=== PATIENT | male | born 1940 | race Caucasian/White ===

== ENCOUNTER 2019-10-28 17:29 | Inpatient (IN) ==
--- OUTSIDE RECORDS SUMMARY | 2019-10-28 17:31 | External Medical Summary | Continuity of Care Document ---
:1940 Author Name Cyndi Red Address Unavailable Unavailable , Care Team Providers Name Role Phone NonMNPG M.D. Unavailable [email or web address] PCP, UNKNOWN Unavailable Unavailable Problems Abnormal electrocardiogram (794.31) (R94.31) Dyslipidemia (272.4) (E78.5) Pre-operative cardiovascular examination (V72.81) (Z01.810) Hypertension (401.9) (I10) Osteoarthritis (715.90) Allergies and Adverse Reactions Neomycin-Bacitracin Zn-Polymyx OINT (Allergy) Medications Medications not documented Procedures Procedures not documented Immunizations Immunizations not documented Social History - Smoking Status Never smoked tobacco Plan of Treatment Planned Observations Planned Goals not documented Results No Known Results Results not documented
[2019-10-28 18:08] LABS: Hematocrit (blood only) 40.2 % (42-52); Hemoglobin 13.9 g/dL (14.0-18.0); Mean Corpuscular Hemoglobin 34.3 pg (25-34); Mean Corpuscular Hgb Conc 34.6 g/dL (32-36); Mean Corpuscular Volume 99.3 fL (80-100); RDW Coefficient of Variation 14.7 % (11.5-14.5); RDW Standard Deviation 53.3 fL (36.4-46.3); Red Blood Count 4.05 M/uL (4.7-6.1); White Blood Count 3.67 K/uL (4.8-10.8)
[2019-10-28 18:09] LABS: INR 1.1 (0.9-1.1); Prothrombin Time 11.1 Seconds (9.0-12.0)
[2019-10-28 18:21] LABS: Platelet Count 70 K/uL (130-400)
[2019-10-28 18:22] LABS: Basophils # (auto) 0.01 K/uL (0-0.2); Basophils % (auto) 0.3 %; Eosinophils # (auto) 0.15 K/uL (0-0.5); Eosinophils % (auto) 4.1 %; Immature Granulocytes # (auto) 0.01 K/uL (0.00-0.02); Immature Granulocytes % (auto) 0.3 %; Lymphocytes # (auto) 1.69 K/uL (1.2-3.4); Monocytes # (auto) 0.36 K/uL (0.11-0.59); Monocytes % (auto) 9.8 %; Neutrophils # (auto) 1.45 K/uL (1.4-6.5); Neutrophils % (auto) 39.5 %; Platelet Estimate Decreased (Normal)
[2019-10-28 18:26] LABS: Albumin Level 3.2 gm/dl (3.4-5.0); BUN Creatinine Ratio 15.3 (10-20); Blood Urea Nitrogen 17 mg/dl (7-18); Calcium 8.7 mg/dl (8.5-10.1); Carbon Dioxide 27 mmol/L (21-32); Chloride 111 mmol/L (98-107); Est GFR (African American) 74.7; Est GFR (Non-African American) 64.4; Glucose 81 mg/dl (70-99); Sodium 142 mmol/L (136-145)
[2019-10-28 18:29] LABS: Alanine Aminotransferase 42 U/L (12-78); Alkaline Phosphatase 63 U/L (45-117); Bilirubin,Total 0.6 mg/dl (0.2-1); Globulin 3.3 gm/dl (2.5-4.0); Thyroid Stimulating Hormone 0.849 uIu/ml (0.300-4.500); Total Protein 6.5 gm/dl (6.4-8.2); Troponin I < 0.015 ng/ml (0-0.045)
--- NOTE | 2019-10-28 18:49 | XRay Report ---
SINGLE VIEW CHEST CLINICAL HISTORY: Generalized weakness. FINDINGS: An AP, portable, upright chest radiograph is compared to study dated 04/25/2011. The examina tion is degraded by portable technique, apical lordotic positioning, and patient rotation. Heart is e nlarged. The pulmonary vasculature is noncongested. The lungs and pleural spaces are clear. No pneumo thorax is seen. The skeletal structures are osteopenic. The bony thorax is grossly intact. IMPRESSION: Cardiomegaly with no active disease in the chest. ACT 112: Negative or not required by law. Electronically signed by: Scotty Aponte M.D. 10/28/2019 6:48 PM
[2019-10-28 19:06] LABS: Potassium 4.3 mmol/L (3.5-5.1)
[2019-10-28 19:11] LABS: Magnesium 1.8 mg/dl (1.8-2.4)
[2019-10-28 19:35] LABS: Lyme Ab IgG w/WB Rflx Negative (Negative); Lyme Ab IgM w/WB Rflx Negative (Negative)
[2019-10-28] MEDS ORDERED: HydrALAZINE HCL 20 MG/ML VIAL IV PRN (23:01)
[2019-10-28] MEDS ORDERED: ACETAMINOPHEN 325 MG TAB PO PRN (23:01)
[2019-10-28] MEDS ORDERED: FLUTICASONE PROPIONATE NA SPR 16 GM BTL PRN (23:01)
[2019-10-28] MEDS ORDERED: ALUMINUM/MAGNESIUM SUSP 30 ML UDC PO PRN (23:01)
[2019-10-28] MEDS ORDERED: NITROGLYCERIN SL 0.4 MG/TAB TAB SL PRN (23:01)
[2019-10-28] MEDS ORDERED: POLYETHYLENE (MIRALAX) 17 GM PACK PO PRN (23:01)
--- NOTE | 2019-10-28 23:38 | History & Physical Report ---
Date of Service October 28, 2019 Assessment & Plan (1) Dizziness: Ja Davis is a 79 y/o male with past medical hx of Multiple Myeloma, HTN, BPH, HLD who presented to [facility] ED via EMS for dizziness. - Bijeminy on ECG most likely cause of symptomatic dizziness most likely from poor perfusion to brain. In ED exam room, appeared to be NSR on monitor. - Denies prior cardiac history other than HTN. Notes follows with [facility] in [place] and had a stress test about 5 years ago, no prior cardiac caths. - Unsure if his BP is untreated, elevated BP readings here, only on Lisinopril 20mg BID. - Will hold Flomax overnight since worsening dizziness on exertion and would like to prevent syncope from alpha-1 antagonist. - C/w ASA 81 mg daily - C/w home simvastatin 40mg daily - Cardiology consult placed for evaluation/recs - Cardiac monitoring - Initial trop negative, will continue to trend - No significant electrolyte abnormalities - Attempt to get records from [facility] in [place]. FENGI: NPO since maybe need for pacemaker, continue with PPI, pantoprazole 40mg PO since home NF Dispo: Full admit, 2 midnight rule applies DVT ppx: SCDs Code: Full Code (2) Bigeminy: New ECG findings in ED (3) HTN (hypertension): Elevated BP here in ED 180s/90s with a systolic reading in room of 200. c/w Lisinopril 20mg PO BID Hydralazine 10mg IV PRN >180/>110 (4) Multiple myeloma: Notes diagnosis about 5 years ago, follows with [facility] [place]. Currently on Revlimid 10mg PO, takes daily for one week, then does not take for one week. Currently is taking this week. Did not bring medication with him. Discussed to have spouse bring medication tomorrow. Appears to be well controlled, patient is a vague historian. c/w Acyclovir 400mg PO daily for ppx C/w home gabapentin 300mg PO TID (5) Anxiety and depression: c/w sertraline 50mg PO daily (6) GERD (gastroesophageal reflux disease): pantoprazole 40mg PO since home NF Admission and Anticipated Discharge Date Admission Date: October 28, 2019 History of Present Illness Chief Complaint: Dizziness Primary Care Provider: NO PCP Ja Davis is a 79 y/o male with past medical hx of Multiple Myeloma, HTN, BPH, HLD who presented to [facility] ED via EMS for dizziness. He notes lightheadedne ss/dizziness for about one week. He notes it has been intermittent and is worse with exertion and made better by rest "not doing much." He denies chest pain, shortness of breath, nausea, vomiting, syncope, palpitations. He denies feeling like the room is spinning. He notes he had similar dizziness many years ago that was treated as sinusitis that resolved. He notes he called EMS as today dizziness "would not go away." He notes he follows with his medical care in [place]. He states EMS recommended transfer here to [facility] as more appropriate possible cardiac interventions could be performed here that may be limited at [place]. [place] was they were referring to Bijeminy appearance on his ECG which was what was seen in ED. He notes he follows with a [facility] in [place] for his HTN, denies CAD. He notes he has had echocardiogram, stress testing with last about 5 years ago. He denies any prior hx of cardiac catherization. He notes he is being treated for Multiple Myeloma with the cancer center in [place]. He is on Revlimid 10mg PO daily, he notes he takes medication for one week (current week), then takes one week off. He notes his MM is being well treated with diagnosis about 5 years ago. Allergies Allergy/AdvReac Type Severity Reaction Status Date / Time neomycin Allergy Unknown ? Verified 10/28/19 19:00 Home Medications Home Medications Medication Instructions Recorded Confirmed Type acyclovir 400 mg PO DAILY 10/28/19 10/28/19 History albuterol sulfate [Ventolin HFA] 2 puff INHALATION Q4 PRN 10/28/19 10/28/19 History aspirin [Aspir-81] 81 mg PO DAILY 10/28/19 10/28/19 History calcium carbonate [Calcium 600] 600 mg PO BID 10/28/19 10/28/19 History coenzyme Q10 [CoQ-10] 100 mg PO DAILY 10/28/19 10/28/19 History esomeprazole magnesium [Nexium] 20 mg PO DAILY 10/28/19 10/28/19 History fluticasone propionate [Flonase 2 spray INTRANASAL DAILY PRN 10/28/19 10/28/19 History Allergy Relief] gabapentin [Neurontin] 300 mg PO TID 10/28/19 10/28/19 History hydrocodone-acetaminophen [[place]] 1 tab PO Q4 PRN 10/28/19 10/28/19 History lenalidomide [Revlimid] 10 mg PO UD 10/28/19 10/28/19 History lisinopril [Zestril] 20 mg PO BID 10/28/19 10/28/19 History loperamide [Imodium A-D] 2 mg PO Q6H PRN 10/28/19 10/28/19 History loratadine 10 mg PO DAILY 10/28/19 10/28/19 History multivitamin 1 tab PO DAILY 10/28/19 10/28/19 History potassium chloride [Klor-Con M20] 20 meq PO BID 10/28/19 10/28/19 History potassium chloride [Klor-Con M20] 40 meq PO .QSUPPER 10/28/19 10/28/19 History sertraline [Zoloft] 50 mg PO DAILY 10/28/19 10/28/19 History simvastatin [Zocor] 40 mg PO DAILY 10/28/19 10/28/19 History sod phos di, mono-K phos mono 1,250 tab PO DAILY 10/28/19 10/28/19 History [Phospha 250 Neutral] terazosin 5 mg PO BID 10/28/19 10/28/19 History Past Med/Surg History Social History Smoking Status: Former smoker Smoking End Date: 1964; Second Hand Exposure: No; Do You Dip or Chew Tobacco: No; Hx Alcohol Use: No Hx Substance Use: No Preferred Language: Occitan Communication Ability: Effective [place] Required: No Beliefs That Will Affect Care: None Current Living Situation: Spouse Other Information That Helps Us Care for You: No Feels Safe at Home: Yes Safety Concerns: Feels Safe At This Time Review of Systems Review of Systems: All systems reviewed & are unremarkable except as noted in HPI & below Constitutional: no fever and no chills Eyes: no diplopia and no spots in vision Ear, Nose, Mouth, Throat: no epistaxis and no sore throat Respiratory: no cough and no dyspnea Cardiovascular: no chest pain and no syncope Gastrointestinal: no abdominal pain, no nausea and no vomiting Genitourinary: no dysuria and no urinary frequency Musculoskeletal: no back pain, no neck pain and no joint pain Integumentary: no rash and no lesions Neurologic: no localized weakness, no numbness and no syncope Physical Exam Constitutional: WD/WN, vitals as above + obese Eyes: PERRL, conjunctivae normal, anicteric sclerae ENMT: external ear and nose normal, oropharynx normal Neck: normal visual inspection and trachea midline Respiratory: normal respiratory effort, lungs clear to auscultation Cardiovascular: Rate/Rhythm: regular rate and regular rhythm Gastrointestinal (Abdomen): Inspection/Auscultation: normal bowel sounds; abdomen not distended Percussion/Palpation: abdomen soft; abdomen nontender, no guarding and abdomen not rigid Musculoskeletal: Head/Neck/Chest: normocephalic and head atraumatic Skin: no rashes, warm and dry Neurologic: moves all extremities and awake Psychiatric: Orientation: alert and oriented x 3 Eye Contact: good eye contact Affect: + anxious affect and + tearful affect Results & Data Results & Data ([facility]) Vital Signs (Past 12 Hours) Vital Signs Temp Pulse Resp BP Pulse Ox 10/28/19 22:30 48 L 12 175/97 H 96 10/28/19 21:30 47 L 12 161/90 H 96 10/28/19 21:00 47 L 16 170/85 H 95 10/28/19 20:31 47 L 12 161/92 H 95 10/28/19 20:04 52 L 16 174/92 H 96 10/28/19 20:00 52 L 13 147/92 H 95 10/28/19 19:31 58 L 15 188/90 H 97 10/28/19 19:00 52 L 14 170/91 H 96 10/28/19 18:31 56 L 15 143/77 H 96 10/28/19 18:17 54 L 15 172/96 H 96 10/28/19 17:32 37.1 C 64 20 148/77 H 95 Laboratory Results Laboratory Results - last 24 hr 10/28/19 10/28/19 10/28/19 17:50 17:50 17:50 WBC 3.67 L RBC 4.05 L Hgb 13.9 L Hct 40.2 L MCV 99.3 MCH 34.3 H MCHC 34.6 RDW Std Deviation 53.3 H RDW Coeff of Manav 14.7 H Plt Count 70 L MPV 12.0 H Immature Gran % (Auto) 0.3 Neut % (Auto) 39.5 Lymph % (Auto) 46.0 [place] % (Auto) 9.8 Eos % (Auto) 4.1 Baso % (Auto) 0.3 Neut # (Auto) 1.45 Lymph # (Auto) 1.69 [place] # (Auto) 0.36 Eos # (Auto) 0.15 Baso # (Auto) 0.01 Immature Gran # (Auto) 0.01 Platelet Estimate Decreased L PT 11.1 INR 1.1 Sodium 142 Potassium Chloride 111 H Carbon Dioxide 27 Anion Gap 5.0 BUN 17 Creatinine 1.10 Est Cr Clr Drug Dosing Not Reportable Est GFR ( Amer) 74.7 Est GFR (Non-Af Amer) 64.4 BUN/Creatinine Ratio 15.3 Glucose 81 Calcium 8.7 Magnesium Total Bilirubin 0.6 AST ALT 42 Alkaline Phosphatase 63 Troponin I < 0.015 Total Protein 6.5 Albumin 3.2 L Globulin 3.3 Albumin/Globulin Ratio 1.0 TSH 0.849 Lyme Disease IgG Ab Lyme Disease IgM Ab Blood Type Antibody Screen 10/28/19 10/28/19 10/28/19 17:50 18:24 18:36 WBC RBC Hgb Hct MCV MCH MCHC RDW Std Deviation RDW Coeff of Manav Plt Count MPV Immature Gran % (Auto) Neut % (Auto) Lymph % (Auto) [place] % (Auto) Eos % (Auto) Baso % (Auto) Neut # (Auto) Lymph # (Auto) [place] # (Auto) Eos # (Auto) Baso # (Auto) Immature Gran # (Auto) Platelet Estimate PT INR Sodium Potassium 4.3 Chloride Carbon Dioxide Anion Gap BUN Creatinine Est Cr Clr Drug Dosing Est GFR ( Amer) Est GFR (Non-Af Amer) BUN/Creatinine Ratio Glucose Calcium Magnesium 1.8 Total Bilirubin AST 21 ALT Alkaline Phosphatase Troponin I Total Protein Albumin Globulin Albumin/Globulin Ratio TSH Lyme Disease IgG Ab Negative Lyme Disease IgM Ab Negative Blood Type O Positive Antibody Screen NEGATIVE Code Status & VTE Plan Code Status Full Code VTE Prophylaxis Plan VTE Prophylaxis will be ordered: Yes Supervising Physician Co-Signing Physician Notes Attending addendum: I have physically seen this patient, have supervised the medical residents activities, and agree with the H&P unless as otherwise noted. Assessment and Plan: Symptomatic bradycardia/bigeminy/hypertension- The patient will be admitted to telemetry for serial cardiac enzymes, serial EKG's, cardiac rhythm monitoring and a 2-D echocardiogram with Dopplers. Manifesting as dizziness. Continue aspirin 81 mg daily, lisinopril 20 mg p.o. twice daily. Hydralazine 10 mg IV every 4 hours PRN systolic blood pressure greater than 180. Consult cardiology. Multiple myeloma- Continue usual medications acyclovir and gabapentin. Anxiety with depression- Continue sertraline 50 mg daily. GERD- Continue pantoprazole 40 mg daily Remainder of orders and notations as noted. Resident Activity Tracking Resident Involvement: Resident Care Provided Care Provided: [facility]
--- NOTE | 2019-10-29 00:59 | Emergency Department Note ---
Impression & Plan Symptomatic bradycardia ED Provider Note INFORMANT: [Patient] ED PROVIDER(S): Garland Aguila MD CHIEF COMPLAINT: Chief complaint lightheadedness PLAN: Disposition: Admitted Condition: [Good] MEDICAL DECISION MAKING: Patient presented to emergency department complaining of lightheadedness and not feeling well. He was noted to have a heart rate in the 30s per EMS his initial report. I did not have a rhythm strip or twelve-lead confirming this. The patient was mildly bradycardic in the ER initially. The patient had an unremarkable ECG. His chemistry panel was unremarkable. Lyme testing and troponin were negative. He does have a pancytopenia on CBC. The patient did have some prior low platelet measurements previously. On reassessment the patient stated he was feeling mildly lightheaded and his heart rate was in the low 40s. This did abruptly change and go back up into the high 50s, near 60 and the patient was feeling better. Because of this I suspect he may be dealing with a symptomatic bradycardia. He had no ischemic findings on his EKG in the emergency department. I discussed further management in the hospital. The patient was in agreement. [facility] Gray Mant[facility]. The patient was evaluated in the ER by the team and admitted. Triage Nursing notes reviewed and agree them. [Additional history obtained from] EMS Vital Signs: reviewed and remarkable for [no significant abnormalities] Differential diagnosis: Infection, dehydration, metabolic abnormality, hypo/hyperglycemia, electrolyte disturbance, anemia, hypoxia, cardiac sources, intracerebral event, toxicologic, neurologic, as well as other pathologies. Diagnostics interpreted by me: ECG: Rate: 69 Rhythm: Sinus rhythm with PVCs [place]:Normal QRS:Normal ST segements:No elevation or depression Other:No PACs or PVCs. Inferior Q waves Cardiac Monitoring: Cardiac monitoring ordered by me: The patient was placed on continuous cardiac monitoring and observed. It revealed a sinus rhythm that fluctuated with occasional moderate bradycardia and periods of the heart rate dipping to the low 40s. PVCs were noted. They were fairly frequent. Occasional bigeminy. Imaging studies: Chest x-ray. Findings: A chest x-ray was performed and revealed no pneumothorax, effusion, infiltrate, pulmonary edema, free air under the diaphragm, or wide mediastinum. Cardiomegaly noted. Impression: No acute disea se. Consultation(s): [facility] service HPI: The patient is a 79 year old male who presents to the Emergency Room with complaints of lightheadedness. This started intermittently over the last several days and is worsening. The patient also notes the following associated symptoms, feelings of near syncope and weakness. The patient has found no relieving factors. Current pain is rated as 0/10. EMS noted the patient had a heart rate that dipped down into the 30s when he was symptomatic. Pt denies LOC, headache, fevers, chills, diaphoresis, visual changes, neck pain, chest pain, breathing difficulties, nausea, vomiting, abdominal pain, back pain, melena, hematochezia, urinary symptoms, numbness, weakness, lymphadenopathy, rash, or other complaints. ROS: See above HPI for pertinent positives & negatives. A total of [10] systems reviewed and were otherwise negative. PAST MEDICAL HISTORY:[See Below] GERD, neuropathy, hypertension PAST SURGICAL HISTORY:[See Below] FAMILY HISTORY:[See Below] SOCIAL HISTORY:[See Below] HOME MEDICATIONS:[See Below] ALLERGIES:[See Below] VITALS:[See Below] PHYSICAL EXAMINATION: GENERAL: Awake, alert, well-appearing, in no distress HENT: Normocephalic, atraumatic. Oropharynx unremarkable. EYES: Normal conjunctiva. Sclera non-icteric. NECK: Inspection normal. Non-tender. Supple. No nuchal rigidity. FROM. No masses. RESPIRATORY: Clear to auscultation. No wheezes. No rales. Normal respiratory effort. CARDIAC: Borderline bradycardic rate. Normal rhythm. No murmurs. No rubs. Extremities warm and well perfused. Pulses equal. No JVD. GI: Soft, non-distended. No tenderness to palpation. No rebound or guarding. No masses. RECTAL: Deferred. MUSCULOSKELETAL: Atraumatic. Chest examination reveals no tenderness. The back is symmetrical on inspection without obvious abnormality. There is no CVA tenderness to palpation. No joint edema. LOWER EXTREMITIES: Calves are equal size bilaterally and non-tender. Trace edema. Chronic venous discoloration. NEURO: Normal sensorium. No sensory or motor deficits noted. SKIN: No rash or jaundice noted. ED COURSE: [Critical Care:] [None] Garland Aguila MD Past Med/Surg History Social History Smoking Status: Former smoker Smoking End Date: 1964; Second Hand Exposure: No; Do You Dip or Chew Tobacco: No; Hx Alcohol Use: No Hx Substance Use: No Preferred Language: Occitan Communication Ability: Effective Mandrel Press Hand Required: No Beliefs That Will Affect Care: None Current Living Situation: Spouse Other Information That Helps Us Care for You: No Feels Safe at Home: Yes Safety Concerns: Feels Safe At This Time Allergies Allergies Allergy/AdvReac Type Severity Reaction Status Date / Time neomycin Allergy Unknown ? Verified 10/28/19 19:00 Home Meds Home Medications Medication Instructions Recorded Confirmed acyclovir 400 mg PO DAILY 10/28/19 10/28/19 albuterol sulfate [Ventolin HFA] 2 puff INHALATION Q4 PRN 10/28/19 10/28/19 aspirin [Aspir-81] 81 mg PO DAILY 10/28/19 10/28/19 calcium carbonate [Calcium 600] 600 mg PO BID 10/28/19 10/28/19 coenzyme Q10 [CoQ-10] 100 mg PO DAILY 10/28/19 10/28/19 esomeprazole magnesium [Nexium] 20 mg PO DAILY 10/28/19 10/28/19 fluticasone propionate [Flonase 2 spray INTRANASAL DAILY PRN 10/28/19 10/28/19 Allergy Relief] gabapentin [Neurontin] 300 mg PO TID 10/28/19 10/28/19 hydrocodone-acetaminophen [[place]] 1 tab PO Q4 PRN 10/28/19 10/28/19 lenalidomide [Revlimid] 10 mg PO UD 10/28/19 10/28/19 lisinopril [Zestril] 20 mg PO BID 10/28/19 10/28/19 loperamide [Imodium A-D] 2 mg PO Q6H PRN 10/28/19 10/28/19 loratadine 10 mg PO DAILY 10/28/19 10/28/19 multivitamin 1 tab PO DAILY 10/28/19 10/28/19 potassium chloride [Klor-Con M20] 20 meq PO BID 10/28/19 10/28/19 potassium chloride [Klor-Con M20] 40 meq PO .QSUPPER 10/28/19 10/28/19 sertraline [Zoloft] 50 mg PO DAILY 10/28/19 10/28/19 simvastatin [Zocor] 40 mg PO DAILY 10/28/19 10/28/19 sod phos di, mono-K phos mono 1,250 tab PO DAILY 10/28/19 10/28/19 [Phospha 250 Neutral] terazosin 5 mg PO BID 10/28/19 10/28/19 Results & Data (ED) Vital Signs Vital Signs - 24 hr 10/28/19 17:32 10/28/19 18:17 10/28/19 18:31 Temperature 37.1 C Temperature Source Oral Pulse Rate 64 54 L 56 L Respiratory Rate 20 15 15 Respiratory Effort / Characteristics Non-Labored Spontaneous Respiratory Depth Normal Blood Pressure 148/77 H 172/96 H 143/77 H Blood Pressure Mean 100 104 84 Blood Pressure Position Sitting Pulse Oximetry 95 96 96 Oxygen Delivery Method Room Air Sepsis Recent Fever Within 48 Hours No Sepsis New/Unexplained Change in Mental Status N/A Sepsis Action Taken by Nursing No Action Required 10/28/19 19:00 10/28/19 19:31 10/28/19 20:00 Temperature Temperature Source Pulse Rate 52 L 58 L 52 L Respiratory Rate 14 15 13 Respiratory Effort / Characteristics Respiratory Depth Blood Pressure 170/91 H 188/90 H 147/92 H Blood Pressure Mean 129 102 103 Blood Pressure Position Pulse Oximetry 96 97 95 Oxygen Delivery Method Sepsis Recent Fever Within 48 Hours Sepsis New/Unexplained Change in Mental Status Sepsis Action Taken by Nursing 10/28/19 20:04 10/28/19 20:31 10/28/19 21:00 Temperature Temperature Source Pulse Rate 52 L 47 L 47 L Respiratory Rate 16 12 16 Respiratory Effort / Characteristics Respiratory Depth Blood Pressure 174/92 H 161/92 H 170/85 H Blood Pressure Mean 107 111 108 Blood Pressure Position Pulse Oximetry 96 95 95 Oxygen Delivery Method Sepsis Recent Fever Within 48 Hours Sepsis New/Unexplained Change in Mental Status Sepsis Action Taken by Nursing 10/28/19 21:30 10/28/19 22:30 Temperature Temperature Source Pulse Rate 47 L 48 L Respiratory Rate 12 12 Respiratory Effort / Characteristics Respiratory Depth Blood Pressure 161/90 H 175/97 H Blood Pressure Mean 121 114 Blood Pressure Position Pulse Oximetry 96 96 Oxygen Delivery Method Sepsis Recent Fever Within 48 Hours Sepsis New/Unexplained Change in Mental Status Sepsis Action Taken by Nursing Laboratory Data Result diagrams: 10/28/19 17:50 10/28/19 18:36 Lab Results 10/28/19 10/28/19 10/28/19 Range/Units 17:50 17:50 17:50 WBC 3.67 L (4.8-10.8) K/uL RBC 4.05 L (4.7-6.1) M/uL Hgb 13.9 L (14.0-18.0) g/dL Hct 40.2 L (42-52) % MCV 99.3 (80-100) fL MCH 34.3 H (25-34) pg MCHC 34.6 (32-36) g/dL RDW Std Deviation 53.3 H (36.4-46.3) fL RDW Coeff of Manav 14.7 H (11.5-14.5) % Plt Count 70 L (130-400) K/uL MPV 12.0 H (7.4-10.4) fL Immature Gran % (Auto) 0.3 % Neut % (Auto) 39.5 % Lymph % (Auto) 46.0 % [place] % (Auto) 9.8 % Eos % (Auto) 4.1 % Baso % (Auto) 0.3 % Neut # (Auto) 1.45 (1.4-6.5) K/uL Lymph # (Auto) 1.69 (1.2-3.4) K/uL [place] # (Auto) 0.36 (0.11-0.59) K/uL Eos # (Auto) 0.15 (0-0.5) K/uL Baso # (Auto) 0.01 (0-0.2) K/uL Immature Gran # (Auto) 0.01 (0.00-0.02) K/uL Platelet Estimate Decreased L (Normal) PT 11.1 (9.0-12.0) Seconds INR 1.1 (0.9-1.1) Sodium 142 (136-145) mmol/L Potassium (3.5-5.1) mmol/L Chloride 111 H (98-107) mmol/L Carbon Dioxide 27 (21-32) mmol/L Anion Gap 5.0 (3-11) BUN 17 (7-18) mg/dl Creatinine 1.10 (0.6-1.4) mg/dl Est Cr Clr Drug Dosing Not Reportable Est GFR ( Amer) 74.7 Est GFR (Non-Af Amer) 64.4 BUN/Creatinine Ratio 15.3 (10-20) Glucose 81 (70-99) mg/dl Calcium 8.7 (8.5-10.1) mg/dl Magnesium (1.8-2.4) mg/dl Total Bilirubin 0.6 (0.2-1) mg/dl AST (15-37) U/L ALT 42 (12-78) U/L Alkaline Phosphatase 63 (45-117) U/L Troponin I < 0.015 (0-0.045) ng/ml Total Protein 6.5 (6.4-8.2) gm/dl Albumin 3.2 L (3.4-5.0) gm/dl Globulin 3.3 (2.5-4.0) gm/dl Albumin/Globulin Ratio 1.0 (0.9-2) TSH 0.849 (0.300-4.500) uIu/ml Lyme Disease IgG Ab (Negative) Lyme Disease IgM Ab (Negative) Blood Type Antibody Screen 10/28/19 10/28/19 10/28/19 Range/Units 17:50 18:24 18:36 WBC (4.8-10.8) K/uL RBC (4.7-6.1) M/uL Hgb (14.0-18.0) g/dL Hct (42-52) % MCV (80-100) fL MCH (25-34) pg MCHC (32-36) g/dL RDW Std Deviation (36.4-46.3) fL RDW Coeff of Manav (11.5-14.5) % Plt Count (130-400) K/uL MPV (7.4-10.4) fL Immature Gran % (Auto) % Neut % (Auto) % Lymph % (Auto) % [place] % (Auto) % Eos % (Auto) % Baso % (Auto) % Neut # (Auto) (1.4-6.5) K/uL Lymph # (Auto) (1.2-3.4) K/uL [place] # (Auto) (0.11-0.59) K/uL Eos # (Auto) (0-0.5) K/uL Baso # (Auto) (0-0.2) K/uL Immature Gran # (Auto) (0.00-0.02) K/uL Platelet Estimate (Normal) PT (9.0-12.0) Seconds INR (0.9-1.1) Sodium (136-145) mmol/L Potassium 4.3 (3.5-5.1) mmol/L Chloride (98-107) mmol/L Carbon Dioxide (21-32) mmol/L Anion Gap (3-11) BUN (7-18) mg/dl Creatinine (0.6-1.4) mg/dl Est Cr Clr Drug Dosing Est GFR ( Amer) Est GFR (Non-Af Amer) BUN/Creatinine Ratio (10-20) Glucose (70-99) mg/dl Calcium (8.5-10.1) mg/dl Magnesium 1.8 (1.8-2.4) mg/dl Total Bilirubin (0.2-1) mg/dl AST 21 (15-37) U/L ALT (12-78) U/L Alkaline Phosphatase (45-117) U/L Troponin I (0-0.045) ng/ml Total Protein (6.4-8.2) gm/dl Albumin (3.4-5.0) gm/dl Globulin (2.5-4.0) gm/dl Albumin/Globulin Ratio (0.9-2) TSH (0.300-4.500) uIu/ml Lyme Disease IgG Ab Negative (Negative) Lyme Disease IgM Ab Negative (Negative) Blood Type O Positive Antibody Screen NEGATIVE Discharge Plan Visit Data *Final* Discharge Date/Time: 10/28/19 22:51 Chief Complaint: Cardiac Assessment Stated Complaint: WEAK, DIZZY ED Provider: Garland Agiula Discharge Problem: Symptomatic bradycardia Patient Disposition: Admitted As Inpatient Discharge Instructions Interventions: ED Discharge Assessment Last Done: 10/28/19 22:51
[2019-10-29 06:25] LABS: Hematocrit (blood only) 38.9 % (42-52); Hemoglobin 13.2 g/dL (14.0-18.0); Mean Corpuscular Hemoglobin 34.1 pg (25-34); Mean Corpuscular Hgb Conc 33.9 g/dL (32-36); Mean Corpuscular Volume 100.5 fL (80-100); RDW Coefficient of Variation 14.6 % (11.5-14.5); RDW Standard Deviation 53.4 fL (36.4-46.3); Red Blood Count 3.87 M/uL (4.7-6.1); White Blood Count 3.58 K/uL (4.8-10.8)
[2019-10-29 06:29] LABS: Mean Platelet Volume 10.6 fL (7.4-10.4); Platelet Count 68 K/uL (130-400)
[2019-10-29 07:00] LABS: Basophils # (auto) 0.01 K/uL (0-0.2); Basophils % (auto) 0.3 %; Eosinophils # (auto) 0.13 K/uL (0-0.5); Eosinophils % (auto) 3.6 %; Giant Platelets 1+; Lymphocytes # (auto) 1.57 K/uL (1.2-3.4); Lymphocytes % (auto) 43.9 %; Monocytes % (auto) 11.2 %; Neutrophils # (auto) 1.47 K/uL (1.4-6.5)
[2019-10-29 07:03] LABS: Alanine Aminotransferase 36 U/L (12-78); Albumin Level 2.8 gm/dl (3.4-5.0); Aspartate Aminotransferase 21 U/L (15-37); BUN Creatinine Ratio 15.6 (10-20); Blood Urea Nitrogen 16 mg/dl (7-18); Calcium 8.5 mg/dl (8.5-10.1); Carbon Dioxide 28 mmol/L (21-32); Chloride 110 mmol/L (98-107); Creatinine Clr Calc Pharmacy 77.8 ml/min; Est GFR (African American) 83.8; Est GFR (Non-African American) 72.3; Glucose 75 mg/dl (70-99); Potassium 3.9 mmol/L (3.5-5.1); Sodium 143 mmol/L (136-145)
[2019-10-29 07:08] LABS: Albumin Globulin Ratio 0.9 (0.9-2); Alkaline Phosphatase 59 U/L (45-117); Bilirubin,Total 0.7 mg/dl (0.2-1); Total Protein 5.8 gm/dl (6.4-8.2); Troponin I < 0.015 ng/ml (0-0.045)
[2019-10-29 07:42] LABS: Appearance Urine Clear (Clear); Bilirubin Urine Negative (Negative); Blood Urine Negative (Negative); Color Urine Yellow; Glucose Urine UA Negative (Negative); Ketones Urine Negative (Negative); Leukocyte Esterase Urine Negative (Negative); Nitrite Urine Negative (Negative); Protein Urine Negative (Negative); Specific Gravity Urine 1.019 (1.000-1.030); Urobilinogen Urine Negative (Negative); pH Urine 6.5 (4.5-7.5)
[2019-10-29] MEDS: PANTOprazole 40 MG TAB PO SCH (08:00)
[2019-10-29] MEDS: lisinopriL 20 MG TAB PO SCH ×2 (08:01→21:32)
[2019-10-29] MEDS: GABAPENTIN 300 MG CAP PO SCH ×3 (08:01→21:33)
[2019-10-29] MEDS: ASPIRIN 81 MG ECTAB PO SCH (08:01)
[2019-10-29] MEDS: POT PHOSPHATE MONOBASIC W/ SOD TAB PO SCH (08:02)
[2019-10-29] MEDS: ACYCLOVIR 400 MG TAB PO SCH (08:02)
[2019-10-29] MEDS: LORATADINE 10 MG TAB PO SCH (08:02)
[2019-10-29] MEDS: POTASSIUM CHLORIDE 20 MEQ TABCR PO SCH ×2 (08:03→21:33)
[2019-10-29] MEDS: SERTRALINE HCL 50 MG TABLET PO SCH (08:04)
[2019-10-29] MEDS: SIMVASTATIN 40 MG TAB PO SCH (08:04)
[2019-10-29] MEDS ORDERED: LENALIDOMIDE PO SCH ×2 (09:00→16:30)
--- NOTE | 2019-10-29 09:52 | Cardiology Consultation ---
Date of Consultation October 29, 2019 Assessment & Plan (1) Frequent unifocal PVCs: Mr. Davis is a 79 year old male with a history of Multiple Myeloma, Hypertension, Dyslipidemia, Osteoarthritis, GERD, Asthma, Peripheral Neuropathy, and Prostate Cancer s/p [employer] who was admitted to [facility] late last evening after presenting with Intermittent Lightheadedness, Frequent PVC's, Ventricular Bigeminy, Uncontrolled Hypertension, Sinus Bradycardia, and low normal serum Mg level. I'm not certain how many slower pulse rates are real and how many are the result of frequent PVC's which don't generate a palpable peripheral pulse. Certainly PVC's are associated with elevated BP's -- and he has not had a single normotensive BP reading since being admitted.PVC's also increase in frequency with various electrolyte disturbances. Patient was previously maintained on Mag-Ox 400 mg b.i.d. -- but it caused diarrhea (magnesium oxide is a precursor of milk of magnesia). Therefore recommend supplementing with Slo-Mag which does not have this side effect. Recommend the following: -- Check Echocardiogram. -- Add Amlodipine 5 mg daily for better BP without slowing baseline HR's. -- SloMag 64 mg daily. -- Continue cardiac monitoring for the time being to assess PVC burden as BP c omes down. (2) Bigeminy: -- As outlined above. -- With better BP control PVC's should become less frequent. -- Echocardiogram to evaluate cardiac structure and function. (3) Uncontrolled hypertension: -- Add Amlodipine 5 mg daily. -- Continue Lisinopril 20 mg b.i.d.. -- Continue IV Hydralazine as needed. (4) Intermittent lightheadedness: -- PVC's typically don't cause lightheadedness per se, but conceivable if patient truly bradycardic and develops periods of bigeminy which halves his effective HR theoretically. -- We can assess his chronotropic competence on telemetry when he is up moving around and walking in hallways. History of Present Illness Reason for Consultation: -- Lightheadedness. -- Ventricular Bigeminy, Frequent PVC's. -- Uncontrolled Hypertension. Requesting Physician: Fabrizio Hernandez DO Attending Physician: Jorge Rivera MD History of Present Illness Mr. Davis is a 79 year old male with a history of Multiple Myeloma, Hypertension, Dyslipidemia, Osteoarthritis, GERD, Asthma, Peripheral Neuropathy, and Prostate Cancer s/p [employer] who was admitted to [facility] late last evening after presenting with Intermittent Lightheadedness over the preceding week or two -- usually most noticeable after being upright for longer periods of time -- but this is not consistently reproducible nor does he notice it every time he is upright for longer periods of time. It seems to get better if he sits and rests. Patient denies any lightheadedness if he stands up suddenly. He denies any lightheadedness with sudden changes in body position or head position. This is not described as vertigo. Patient denies any associated symptoms with his lightheadedness -- specifically denying any associated palpitations, tachy-palpitations, nausea, diaphoresis, vomiting, chest discomfort, or any shortness of breath. Patient has otherwise been in his usual state of health and he has been feeling well. His caloric and fluid intakes have been stable. He has not had any recent changes in his medications, activities, or daily routines. Patient is able to perform his usual activities of daily living, climb > 2 flights of stairs, and work around the house without any symptoms. Exertional tolerance is stable. He denies any exertional chest pain, heaviness, tightness, pressure, or discomfort. He denies any exertional neck, jaw, back, or arm pain. He denies any shortness of breath, unusual dyspnea exertion, orthopnea, or PND. He denies any palpitations or syncope. No history of prior syncopal episodes either. EMS initially recorded a HR of 30 bpm -- although they did not produce a corresponding monitor strip or EKG. Later in our ER -- EKG and cardiac monitoring confirmed frequent PVC's, periodic ventricular bigeminy, and at times - sinus bradycardia with HR in the upper 40's and low 50's. Otherwise no ischemic changes on EKG. Lyme titer is negative. Troponin I are undetectable x 3. Mildly anemic with a Hgb of 13.2 g/dl. Serum K level is WNL and serum Mg is at the lower end of the normal range. HISTORICAL BACKGROUND: Patient was previously followed by Dr. Cazares in [place] for hypertension and dyslipidemia. Patient denies any prior cardiac events -- specifically denying any history of CAD, HI, CHF, rheumatic fever, or arrhythmia. He has never had a heart catheterization and he has not had a stress test for at least 5 years. ECHOCARDIOGRAM 08/2015: -- Normal LV systolic function. -- LVEF 55% to 60%. Patient was diagnosed with Multiple Myeloma in 2014, and his initial chemotherapy was complicated by persistent hypotension to the point that patient was off of all antihypertensive medications for a period of about 2 years. Approximately 3 years ago his BP began to trend back so his antihypertensives were gradually restarted and titrated to his current regimen. In recent weeks/months -- his BP's have not been as controlled as they had been in the past. Allergies Allergy/AdvReac Type Severity Reaction Status Date / Time neomycin Allergy Unknown ? Verified 10/28/19 19:00 Home Medications Home Medications Medication Instructions Recorded Confirmed Type acyclovir 400 mg PO DAILY 10/28/19 10/28/19 History albuterol sulfate [Ventolin HFA] 2 puff INHALATION Q4 PRN 10/28/19 10/28/19 History aspirin [Aspir-81] 81 mg PO DAILY 10/28/19 10/28/19 History calcium carbonate [Calcium 600] 600 mg PO BID 10/28/19 10/28/19 History coenzyme Q10 [CoQ-10] 100 mg PO DAILY 10/28/19 10/28/19 History esomeprazole magnesium [Nexium] 20 mg PO DAILY 10/28/19 10/28/19 History fluticasone propionate [Flonase 2 spray INTRANASAL DAILY PRN 10/28/19 10/28/19 History Allergy Relief] gabapentin [Neurontin] 300 mg PO TID 10/28/19 10/28/19 History hydrocodone-acetaminophen [[place]] 1 tab PO Q4 PRN 10/28/19 10/28/19 History lenalidomide [Revlimid] 10 mg PO UD 10/28/19 10/28/19 History lisinopril [Zestril] 20 mg PO BID 10/28/19 10/28/19 History loperamide [Imodium A-D] 2 mg PO Q6H PRN 10/28/19 10/28/19 History loratadine 10 mg PO DAILY 10/28/19 10/28/19 History multivitamin 1 tab PO DAILY 10/28/19 10/28/19 History potassium chloride [Klor-Con M20] 20 meq PO BID 10/28/19 10/28/19 History potassium chloride [Klor-Con M20] 40 meq PO .QSUPPER 10/28/19 10/28/19 History sertraline [Zoloft] 50 mg PO DAILY 10/28/19 10/28/19 History simvastatin [Zocor] 40 mg PO DAILY 10/28/19 10/28/19 History sod phos di, mono-K phos mono 1,250 tab PO DAILY 10/28/19 10/28/19 History [Phospha 250 Neutral] terazosin 5 mg PO BID 10/28/19 10/28/19 History Patient History Social History Smoking Status: Former smoker Smoking End Date: 1964; Second Hand Exposure: No; Do You Dip or Chew Tobacco: No; Hx Alcohol Use: No Hx Substance Use: No Preferred Language: Hong [place]er Communication Ability: Effective Textiles Printer Required: No Beliefs That Will Affect Care: None Current Living Situation: Spouse Other Information That Helps Us Care for You: No Feels Safe at Home: Yes Safety Concerns: Feels Safe At This Time Physical Exam Physical Exam: GENERAL: Patient in no acute distress. HEENT: Head is atraumatic, normocephalic. EOM's intact. Facies symmetric. No perioral cyanosis. NECK: No JVD. JVP is at the level of the clavicle sitting upright. Carotid upstrokes are + 2 bilaterally. No bruits are noted. CHEST/LUNGS: Clear to auscultation throughout all lung ambrosio. No wheezes, rales, or crackles. CVS: S1 and S2 are regular, bradycardic at 58 bpm. No obvious murmurs, gallops, or rubs. PMI is nonpalpable. No lifts, heaves, or thrills. No abdominal aortic or renal bruits. ABDOMINAL EXAM: Bowel sounds are present. No masses, organomegaly, or tenderness. EXTREMITIES: No clubbing or cyanosis. No edema. Intact radial pulses bilaterally. NEUROLOGIC EXAM: Patient is awake, alert, and oriented. Pleasant and cooperative. Answers questions appropriately. Speech is clear. TELEMETRY: -- Sinus rhythm to sinus bradycardia. -- Slowest rhythm overnight was sinus bradycardia at 38 bpm (while sleeping) -- Relatively frequent PVC's, and occasionally in a bigeminal pattern. EKG 10/28/2019: -- NSR at 69 bpm with unifocal PVC's is a bigeminal pattern. ECHOCARDIOGRAM is pending. Results & Data ([facility]) Vital Signs (Past 12 Hours) Vital Signs Temp Pulse Pulse Pulse Resp BP BP 10/29/19 07:16 36.5 C 50 L 16 165/89 H 10/29/19 04:00 36.4 C L 52 L 16 152/82 H 10/29/19 00:48 48 L 10/28/19 23:46 46 L 175/88 H 10/28/19 23:00 36.5 C 55 L 20 188/94 H 10/28/19 22:30 48 L 12 175/97 H Pulse Ox 10/29/19 07:16 96 10/29/19 04:00 97 10/29/19 00:48 10/28/19 23:46 10/28/19 23:00 96 10/28/19 22:30 96 Laboratory Results Laboratory Results - last 24 hr 10/28/19 10/28/19 10/28/19 17:50 17:50 17:50 WBC 3.67 L RBC 4.05 L Hgb 13.9 L Hct 40.2 L MCV 99.3 MCH 34.3 H MCHC 34.6 RDW Std Deviation 53.3 H RDW Coeff of Manav 14.7 H Plt Count 70 L MPV 12.0 H Immature Gran % (Auto) 0.3 Neut % (Auto) 39.5 Lymph % (Auto) 46.0 [place] % (Auto) 9.8 Eos % (Auto) 4.1 Baso % (Auto) 0.3 Neut # (Auto) 1.45 Lymph # (Auto) 1.69 [place] # (Auto) 0.36 Eos # (Auto) 0.15 Baso # (Auto) 0.01 Immature Gran # (Auto) 0.01 Platelet Estimate Decreased L Giant Platelets PT 11.1 INR 1.1 Sodium 142 Potassium Chloride 111 H Carbon Dioxide 27 Anion Gap 5.0 BUN 17 Creatinine 1.10 Est Cr Clr Drug Dosing Not Reportable Est GFR ( Amer) 74.7 Est GFR (Non-Af Amer) 64.4 BUN/Creatinine Ratio 15.3 Glucose 81 POC Glucose Calcium 8.7 Magnesium Total Bilirubin 0.6 AST ALT 42 Alkaline Phosphatase 63 Troponin I < 0.015 Total Protein 6.5 Albumin 3.2 L Globulin 3.3 Albumin/Globulin Ratio 1.0 TSH 0.849 Urine Color Urine Appearance Urine pH Ur Specific Peel Urine Protein Urine Glucose (UA) Urine Ketones Urine Blood Urine Nitrite Urine Bilirubin Urine Urobilinogen Ur Leukocyte Esterase Lyme Disease IgG Ab Lyme Disease IgM Ab Blood Type Antibody Screen 10/28/19 10/28/19 10/28/19 17:50 18:24 18:36 WBC RBC Hgb Hct MCV MCH MCHC RDW Std Deviation RDW Coeff of Manav Plt Count MPV Immature Gran % (Auto) Neut % (Auto) Lymph % (Auto) [place] % (Auto) Eos % (Auto) Baso % (Auto) Neut # (Auto) Lymph # (Auto) [place] # (Auto) Eos # (Auto) Baso # (Auto) Immature Gran # (Auto) Platelet Estimate Giant Platelets PT INR Sodium Potassium 4.3 Chloride Carbon Dioxide Anion Gap BUN Creatinine Est Cr Clr Drug Dosing Est GFR ( Amer) Est GFR (Non-Af Amer) BUN/Creatinine Ratio Glucose POC Glucose Calcium Magnesium 1.8 Total Bilirubin AST 21 ALT Alkaline Phosphatase Troponin I Total Protein Albumin Globulin Albumin/Globulin Ratio TSH Urine Color Urine Appearance Urine pH Ur Specific Peel Urine Protein Urine Glucose (UA) Urine Ketones Urine Blood Urine Nitrite Urine Bilirubin Urine Urobilinogen Ur Leukocyte Esterase Lyme Disease IgG Ab Negative Lyme Disease IgM Ab Negative Blood Type O Positive Antibody Screen NEGATIVE 10/28/19 10/28/19 10/29/19 23:25 23:43 05:46 WBC 3.58 L RBC 3.87 L Hgb 13.2 L Hct 38.9 L MCV 100.5 H MCH 34.1 H MCHC 33.9 RDW Std Deviation 53.4 H RDW Coeff of Manav 14.6 H Plt Count 68 L MPV 10.6 H Immature Gran % (Auto) 0.0 Neut % (Auto) 41.0 Lymph % (Auto) 43.9 [place] % (Auto) 11.2 Eos % (Auto) 3.6 Baso % (Auto) 0.3 Neut # (Auto) 1.47 Lymph # (Auto) 1.57 [place] # (Auto) 0.40 Eos # (Auto) 0.13 Baso # (Auto) 0.01 Immature Gran # (Auto) 0.00 Platelet Estimate Giant Platelets 1+ PT INR Sodium Potassium Chloride Carbon Dioxide Anion Gap BUN Creatinine Est Cr Clr Drug Dosing Est GFR ( Amer) Est GFR (Non-Af Amer) BUN/Creatinine Ratio Glucose POC Glucose 89 Calcium Magnesium Total Bilirubin AST ALT Alkaline Phosphatase Troponin I < 0.015 Total Protein Albumin Globulin Albumin/Globulin Ratio TSH Urine Color Urine Appearance Urine pH Ur Specific Peel Urine Protein Urine Glucose (UA) Urine Ketones Urine Blood Urine Nitrite Urine Bilirubin Urine Urobilinogen Ur Leukocyte Esterase Lyme Disease IgG Ab Lyme Disease IgM Ab Blood Type Antibody Screen 10/29/19 10/29/19 05:46 07:10 WBC RBC Hgb Hct MCV MCH MCHC RDW Std Deviation RDW Coeff of Manav Plt Count MPV Immature Gran % (Auto) Neut % (Auto) Lymph % (Auto) [place] % (Auto) Eos % (Auto) Baso % (Auto) Neut # (Auto) Lymph # (Auto) [place] # (Auto) Eos # (Auto) Baso # (Auto) Immature Gran # (Auto) Platelet Estimate Giant Platelets PT INR Sodium 143 Potassium 3.9 Chloride 110 H Carbon Dioxide 28 Anion Gap 5.0 BUN 16 Creatinine 1.00 Est Cr Clr Drug Dosing 77.8 Est GFR ( Amer) 83.8 Est GFR (Non-Af Amer) 72.3 BUN/Creatinine Ratio 15.6 Glucose 75 POC Glucose Calcium 8.5 Magnesium Total Bilirubin 0.7 AST 21 ALT 36 Alkaline Phosphatase 59 Troponin I < 0.015 Total Protein 5.8 L Albumin 2.8 L Globulin 3.0 Albumin/Globulin Ratio 0.9 TSH Urine Color Yellow Urine Appearance Clear Urine pH 6.5 Ur Specific [place]el 1.019 Urine Protein Negative Urine Glucose (UA) Negative Urine Ketones Negative Urine Blood Negative Urine Nitrite Negative Urine Bilirubin Negative Urine Urobilinogen Negative Ur Leukocyte Esterase Negative Lyme Disease IgG Ab Lyme Disease IgM Ab Blood Type Antibody Screen Medications Administered Active Medications Generic Name Dose Route Start Last Admin Trade Name Freq PRN Reason Stop Dose Admin Acetaminophen 650 mg 10/28/19 23:01 Tylenol PO 11/27/19 23:00 Q4H PRN Pain or Fever Acyclovir 400 mg 10/29/19 09:00 10/29/19 08:02 Zovirax PO 11/05/19 08:59 400 mg DAILY DYLAN Administration Al Hydrox/Mg Hydrox/Simethicone 15 ml 10/28/19 23:01 Maalox PO 08/19/20 23:00 Q4H PRN Dyspepsia Amlodipine Besylate 5 mg 10/30/19 09:00 Norvasc PO 11/29/19 08:59 QAM DYLAN Aspirin 81 mg 10/29/19 09:00 10/29/19 08:01 Ecotrin Ectab PO 11/28/19 08:59 81 mg DAILY DYLAN Administration Fluticasone Propionate 2 sprays 10/28/19 23:01 Flonase NA 11/27/19 23:00 DAILY PRN Nasal Congestion Gabapentin 300 mg 10/29/19 09:00 10/29/19 08:01 Neurontin PO 11/28/19 08:59 300 mg TID DYLAN Administration Hydralazine HCl 10 mg 10/28/19 23:01 Hydralazine Hcl IV 11/27/19 23:00 Q4H PRN Blood Pressure - High Lisinopril 20 mg 10/29/19 09:00 10/29/19 08:01 Zestril PO 11/28/19 08:59 20 mg BID DYLAN Administration Loratadine 10 mg 10/29/19 09:00 10/29/19 08:02 Claritin PO 11/28/19 08:59 10 mg DAILY DYLAN Administration Magnesium Chloride 64 mg 10/29/19 10:00 10/29/19 10:32 Slow-Mag PO 11/28/19 09:59 64 mg QAM DYLAN Administration Nitroglycerin 0.4 mg 10/28/19 23:01 Nitrostat SL 11/27/19 23:00 UD PRN Chest Pain Non-Formulary Medication 10 mg 10/28/19 23:01 Lenalidomide [Revlimid] PO 11/27/19 23:00 UD DYLAN Pantoprazole Sodium 40 mg 10/29/19 09:00 10/29/19 08:00 Protonix PO 11/28/19 08:59 40 mg QAM DYLAN Administration Polyethylene Glycol 17 gm 10/28/19 23:01 Miralax Powder Packet PO 11/27/19 23:00 DAILY PRN Constipation Potassium Chloride 40 meq 10/29/19 16:30 Klor-Con M20 PO 11/28/19 16:29 QDD DYLAN Potassium Chloride 20 meq 10/29/19 09:00 10/29/19 08:03 Klor-Con M20 PO 11/28/19 08:59 20 meq BID DYLAN Administration Potassium Phosphate 5 tab 10/29/19 09:00 10/29/19 08:02 Phospha 250 Neutral 155-852-130 Mg PO 11/28/19 08:59 5 tab DAILY DYLAN Administration Sertraline HCl 50 mg 10/29/19 09:00 10/29/19 08:04 Zoloft PO 11/28/19 08:59 50 mg DAILY DYLAN Administration Simvastatin 40 mg 10/29/19 09:00 10/29/19 08:04 Zocor PO 11/28/19 08:59 40 mg DAILY DYLAN Administration PG Care Time/CCT Total # of Minutes Spent Total Time Spent with Patient: Total time spent is greater than 50% in coordination of care (as documented) at patient's floor/unit and/or counseling patient: Coding Level of Care Code 01034 Initial Inpt Care Lvl 3 Diagnoses Frequent unifocal PVCs I49.3 Bigeminy I49.8 Uncontrolled hypertension I10 Intermittent lightheadedness R42
[2019-10-29] MEDS ORDERED: AMLODIPINE BESYLATE 5 MG TAB PO ONE (10:15)
[2019-10-29] MEDS: MAGNESIUM CHLORIDE 64MG DELAYED REL TAB PO SCH (10:32)
[2019-10-29] MEDS ORDERED: PERFLUTREN LIPID MICROSPHERE (DEFINITY) IV ONE (12:49)
--- NOTE | 2019-10-29 13:30 | Electrocardiogram Report ---
Test Reason : Blood Pressure : / mmHG Vent. Rate : 069 BPM Atrial Rate : 069 BPM P-R Int : 160 ms QRS Dur : 084 ms QT Int : 430 ms P-R-T Axes : 048 -11 055 degrees QTc Int : 460 ms Sinus rhythm with frequent Premature ventricular complexes in a pattern of bigeminy Cannot rule out Inferior infarct (cited on or before 25-APR-2011) Abnormal ECG When compared with ECG of 25-APR-2011 14:39, Premature ventricular complexes are now Present Confirmed by Jorge Rivera [id number] on 10/29/2019 1:30:03 PM Referred By: REFERRED SELF Confirmed By:Jorge Rivera
--- NOTE | 2019-10-29 15:05 | Hospitalist Progress Note ---
Date of Service October 29, 2019 Assessment & Plan (1) Intermittent lightheadedness: suspect that this is due to PVC, bigeminy when ambulating not getting enough perfusion to the brain hope that controlling blood pressure with decrease PVC frequency (2) Frequent unifocal PVCs: electrolytes are okay, Mg low normal at 1.8, will add Slo Mag hope that BP control will improve PVC, decrease frequency check echo for any structural issues (3) Uncontrolled hypertension: all his BP readings have been elevated cardiology started on Norvasc 5mg, will watch for response today continue Lisinopril 20mg BID (4) Symptomatic bradycardia: no further episodes could have been related to PVC's will watch on monitor (5) GERD (gastroesophageal reflux disease): continue PPI (6) Anxiety and depression: mood stable Zoloft (7) Multiple myeloma: stable follows with [facility] in [place] continue Revlimid Admission and Anticipated Discharge Date Admission Date: October 28, 2019 Subjective patient feeling fine as long as he is in bed he describes about two weeks of intermittent light headed symptoms only happens when he is up walking around, gets better when sitting, laying down noted to have some frequent PVC and bigeminy on monitor discussed with Kunal Bains and Dr. Rivera, appreciate their input starting Norvasc for better blood pressure control, will check echo replace magnesium with Slo Mag reviewed labs, WBC 3.5, Hb 13.2, Cr stable at 1.0, Mg 1.8 Review of Systems Review of Systems: All systems reviewed & are unremarkable except as noted in Subjective Physical Exam Constitutional: WD/WN, vitals as above + overweight Eyes: PERRL, conjunctivae normal, anicteric sclerae ENMT: external ear and nose normal, oropharynx normal Neck: trachea midline, no thyromegaly Respiratory: normal respiratory effort, lungs clear to auscultation Cardiovascular: RRR, no murmur, no edema Gastrointestinal (Abdomen): normal bowel sounds, soft, nontender, no hepatosplenomegaly Musculoskeletal: no cyanosis or clubbing, extremities motor strength 5/5 Skin: no rashes, warm and dry Neurologic: patellar DTR's 2+ bilat, sensation intact and PERRL, EOMI, accommodation nl, no face palsy, no dysarthria Psychiatric: A+Ox3, euthymic affect Lymphatic: no cervical or axillary lymphadenopathy Results & Data Results & Data ([facility]) Vital Signs (Past 12 Hours) Vital Signs Temp Pulse Resp BP Pulse Ox 10/29/19 10:56 37.1 C 57 L 16 158/79 H 93 10/29/19 07:16 36.5 C 50 L 16 165/89 H 96 10/29/19 04:00 36.4 C L 52 L 16 152/82 H 97 Laboratory Results Laboratory Results - last 24 hr 10/28/19 10/28/19 10/28/19 17:50 17:50 17:50 WBC 3.67 L RBC 4.05 L Hgb 13.9 L Hct 40.2 L MCV 99.3 MCH 34.3 H MCHC 34.6 RDW Std Deviation 53.3 H RDW Coeff of Manav 14.7 H Plt Count 70 L MPV 12.0 H Immature Gran % (Auto) 0.3 Neut % (Auto) 39.5 Lymph % (Auto) 46.0 Charles % (Auto) 9.8 Eos % (Auto) 4.1 Baso % (Auto) 0.3 Neut # (Auto) 1.45 Lymph # (Auto) 1.69 Charles # (Auto) 0.36 Eos # (Auto) 0.15 Baso # (Auto) 0.01 Immature Gran # (Auto) 0.01 Platelet Estimate Decreased L Giant Platelets PT 11.1 INR 1.1 Sodium 142 Potassium Chloride 111 H Carbon Dioxide 27 Anion Gap 5.0 BUN 17 Creatinine 1.10 Est Cr Clr Drug Dosing Not Reportable Est GFR ( Amer) 74.7 Est GFR (Non-Af Amer) 64.4 BUN/Creatinine Ratio 15.3 Glucose 81 POC Glucose Calcium 8.7 Magnesium Total Bilirubin 0.6 AST ALT 42 Alkaline Phosphatase 63 Troponin I < 0.015 Total Protein 6.5 Albumin 3.2 L Globulin 3.3 Albumin/Globulin Ratio 1.0 TSH 0.849 Urine Color Urine Appearance Urine pH Ur Specific [place] Urine Protein Urine Glucose (UA) Urine Ketones Urine Blood Urine Nitrite Urine Bilirubin Urine Urobilinogen Ur Leukocyte Esterase Lyme Disease IgG Ab Lyme Disease IgM Ab Blood Type Antibody Screen 10/28/19 10/28/19 10/28/19 17:50 18:24 18:36 WBC RBC Hgb Hct MCV MCH MCHC RDW Std Deviation RDW Coeff of Manav Plt Count MPV Immature Gran % (Auto) Neut % (Auto) Lymph % (Auto) Charles % (Auto) Eos % (Auto) Baso % (Auto) Neut # (Auto) Lymph # (Auto) Charles # (Auto) Eos # (Auto) Baso # (Auto) Immature Gran # (Auto) Platelet Estimate Giant Platelets PT INR Sodium Potassium 4.3 Chloride Carbon Dioxide Anion Gap BUN Creatinine Est Cr Clr Drug Dosing Est GFR ( Amer) Est GFR (Non-Af Amer) BUN/Creatinine Ratio Glucose POC Glucose Calcium Magnesium 1.8 Total Bilirubin AST 21 ALT Alkaline Phosphatase Troponin I Total Protein Albumin Globulin Albumin/Globulin Ratio TSH Urine Color Urine Appearance Urine pH Ur Specific [place] Urine Protein Urine Glucose (UA) Urine Ketones Urine Blood Urine Nitrite Urine Bilirubin Urine Urobilinogen Ur Leukocyte Esterase Lyme Disease IgG Ab Negative Lyme Disease IgM Ab Negative Blood Type O Positive Antibody Screen NEGATIVE 10/28/19 10/28/19 10/29/19 23:25 23:43 05:46 WBC 3.58 L RBC 3.87 L Hgb 13.2 L Hct 38.9 L MCV 100.5 H MCH 34.1 H MCHC 33.9 RDW Std Deviation 53.4 H RDW Coeff of Manav 14.6 H Plt Count 68 L MPV 10.6 H Immature Gran % (Auto) 0.0 Neut % (Auto) 41.0 Lymph % (Auto) 43.9 Charles % (Auto) 11.2 Eos % (Auto) 3.6 Baso % (Auto) 0.3 Neut # (Auto) 1.47 Lymph # (Auto) 1.57 Charles # (Auto) 0.40 Eos # (Auto) 0.13 Baso # (Auto) 0.01 Immature Gran # (Auto) 0.00 Platelet Estimate Giant Platelets 1+ PT INR Sodium Potassium Chloride Carbon Dioxide Anion Gap BUN Creatinine Est Cr Clr Drug Dosing Est GFR ( Amer) Est GFR (Non-Af Amer) BUN/Creatinine Ratio Glucose POC Glucose 89 Calcium Magnesium Total Bilirubin AST ALT Alkaline Phosphatase Troponin I < 0.015 Total Protein Albumin Globulin Albumin/Globulin Ratio TSH Urine Color Urine Appearance Urine pH Ur Specific [place] Urine Protein Urine Glucose (UA) Urine Ketones Urine Blood Urine Nitrite Urine Bilirubin Urine Urobilinogen Ur Leukocyte Esterase Lyme Disease IgG Ab Lyme Disease IgM Ab Blood Type Antibody Screen 10/29/19 10/29/19 05:46 07:10 WBC RBC Hgb Hct MCV MCH MCHC RDW Std Deviation RDW Coeff of Manav Plt Count MPV Immature Gran % (Auto) Neut % (Auto) Lymph % (Auto) Charles % (Auto) Eos % (Auto) Baso % (Auto) Neut # (Auto) Lymph # (Auto) Charles # (Auto) Eos # (Auto) Baso # (Auto) Immature Gran # (Auto) Platelet Estimate Giant Platelets PT INR Sodium 143 Potassium 3.9 Chloride 110 H Carbon Dioxide 28 Anion Gap 5.0 BUN 16 Creatinine 1.00 Est Cr Clr Drug Dosing 77.8 Est GFR ( Amer) 83.8 Est GFR (Non-Af Amer) 72.3 BUN/Creatinine Ratio 15.6 Glucose 75 POC Glucose Calcium 8.5 Magnesium Total Bilirubin 0.7 AST 21 ALT 36 Alkaline Phosphatase 59 Troponin I < 0.015 Total Protein 5.8 L Albumin 2.8 L Globulin 3.0 Albumin/Globulin Ratio 0.9 TSH Urine Color Yellow Urine Appearance Clear Urine pH 6.5 Ur Specific [place] 1.019 Urine Protein Negative Urine Glucose (UA) Negative Urine Ketones Negative Urine Blood Negative Urine Nitrite Negative Urine Bilirubin Negative Urine Urobilinogen Negative Ur Leukocyte Esterase Negative Lyme Disease IgG Ab Lyme Disease IgM Ab Blood Type Antibody Screen Medications Administered Current Inpatient Medications Acetaminophen (Tylenol) 650 mg PO Q4H PRN PRN Reason: Pain or Fever Stop: 11/27/19 23:00 Acyclovir (Zovirax) 400 mg PO DAILY [facility] Stop: 11/05/19 08:59 Last Admin: 10/29/19 08:02 Dose: 400 mg Documented by: Al Hydrox/Mg Hydrox/Simethicone (Maalox) 15 ml PO Q4H PRN PRN Reason: Dyspepsia Stop: 11/27/19 23:00 Amlodipine Besylate (Norvasc) 5 mg PO QAM [facility] Stop: 11/29/19 08:59 Aspirin (Ecotrin Ectab) 81 mg PO DAILY [facility] Stop: 11/28/19 08:59 Last Admin: 10/29/19 08:01 Dose: 81 mg Documented by: Fluticasone Propionate (Flonase) 2 sprays NA DAILY PRN PRN Reason: Nasal Congestion Stop: 11/27/19 23:00 Gabapentin (Neurontin) 300 mg PO TID [facility] Stop: 11/28/19 08:59 Last Admin: 10/29/19 13:41 Dose: 300 mg Documented by: Hydralazine HCl (Hydralazine Hcl) 10 mg IV Q4H PRN PRN Reason: Blood Pressure - High Stop: 11/27/19 23:00 Lisinopril (Zestril) 20 mg PO BID [facility] Stop: 11/28/19 08:59 Last Admin: 10/29/19 08:01 Dose: 20 mg Documented by: Loratadine (Claritin) 10 mg PO DAILY [facility] Stop: 11/28/19 08:59 Last Admin: 10/29/19 08:02 Dose: 10 mg Documented by: Magnesium Chloride (Slow-Mag) 64 mg PO QAM [facility] Stop: 11/28/19 09:59 Last Admin: 10/29/19 10:32 Dose: 64 mg Documented by: Miscellaneous (Order Awaiting Action) 1 ea N/A QS [facility] Stop: 11/28/19 14:29 Nitroglycerin (Nitrostat) 0.4 mg SL UD PRN PRN Reason: Chest Pain Stop: 11/27/19 23:00 Pantoprazole Sodium (Protonix) 40 mg PO QAM [facility] Stop: 11/28/19 08:59 Last Admin: 10/29/19 08:00 Dose: 40 mg Documented by: Polyethylene Glycol (Miralax Powder Packet) 17 gm PO DAILY PRN PRN Reason: Constipation Stop: 11/27/19 23:00 Potassium Chloride (Klor-Con M20) 40 meq PO QDD [facility] Stop: 11/28/19 16:29 Potassium Chloride (Klor-Con M20) 20 meq PO BID [facility] Stop: 11/28/19 08:59 Last Admin: 10/29/19 08:03 Dose: 20 meq Documented by: Potassium Phosphate (Phospha 250 Neutral 155-852-130 Mg) 5 tab PO DAILY [facility] Stop: 11/28/19 08:59 Last Admin: 10/29/19 08:02 Dose: 5 tab Documented by: Sertraline HCl (Zoloft) 50 mg PO DAILY [facility] Stop: 11/28/19 08:59 Last Admin: 10/29/19 08:04 Dose: 50 mg Documented by: Simvastatin (Zocor) 40 mg PO DAILY [facility] Stop: 11/28/19 08:59 Last Admin: 10/29/19 08:04 Dose: 40 mg Documented by: PG Care Time/CCT Total # of Minutes Spent Total Time Spent with Patient: Total time spent is greater than 50% in coordination of care (as documented) at patient's floor/unit and/or counseling patient: Coding Level of Care Code 71017 Subseq Hosp Care Lvl 3 Diagnoses Intermittent lightheadedness R42 Frequent unifocal PVCs I49.3 Uncontrolled hypertension I10 Symptomatic bradycardia R00.1 GERD (gastroesophageal reflux disease) K21.9 Anxiety and depression F41.9; F32.9 Multiple myeloma C90.00
[2019-10-29] MEDS ORDERED: Nursing to Pharmacy Communication SCH (16:00)
[2019-10-29] MEDS ORDERED: POTASSIUM CHLORIDE 20 MEQ TABCR PO SCH (16:30)
--- NOTE | 2019-10-30 00:29 | Billing Data ---
Date of Service October 30, 2019 Coding Level of Care Code 14863 Initial Inpt Care Lvl 3
[2019-10-30] MEDS: ACYCLOVIR 400 MG TAB PO SCH (07:54)
[2019-10-30] MEDS: lisinopriL 20 MG TAB PO SCH (07:55)
[2019-10-30] MEDS: POT PHOSPHATE MONOBASIC W/ SOD TAB PO SCH (07:56)
[2019-10-30] MEDS: POTASSIUM CHLORIDE 20 MEQ TABCR PO SCH (07:56)
[2019-10-30] MEDS: SIMVASTATIN 40 MG TAB PO SCH (07:57)
[2019-10-30] MEDS: MAGNESIUM CHLORIDE 64MG DELAYED REL TAB PO SCH (07:57)
[2019-10-30] MEDS: GABAPENTIN 300 MG CAP PO SCH ×2 (07:57→13:21)
[2019-10-30] MEDS: LORATADINE 10 MG TAB PO SCH (07:58)
[2019-10-30] MEDS: PANTOprazole 40 MG TAB PO SCH (07:58)
[2019-10-30] MEDS: ASPIRIN 81 MG ECTAB PO SCH (07:58)
[2019-10-30] MEDS: SERTRALINE HCL 50 MG TABLET PO SCH (07:59)
[2019-10-30] MEDS ORDERED: AMLODIPINE BESYLATE 5 MG TAB PO SCH (09:00)
--- NOTE | 2019-10-30 09:18 | XCELERA ---
[id number]
--- NOTE | 2019-10-30 09:28 | Discharge Summary ---
Date of Service October 30, 2019 Admission HPI Per Admitting Provider Ja Davis is a 79 y/o male with past medical hx of Multiple Myeloma, HTN, BPH, HLD who presented to [facility] ED via EMS for dizziness. He notes lightheadedness/dizziness for about one week. He notes it has been intermittent and is worse with exertion and made better by rest "not doing much." He denies chest pain, shortness of breath, nausea, vomiting, syncope, palpitations. He denies feeling like the room is spinning. He notes he had similar dizziness many years ago that was treated as sinusitis that resolved. He notes he called EMS as today dizziness "would not go away." He notes he follows with his medical care in [place]. He states EMS recommended transfer here to [facility] as more appropriate possible cardiac interventions could be performed here that may be limited at [place]. [place] was they were referring to Bijeminy appearance on his ECG which was what was seen in ED. He notes he follows with a [facility] in [place] for his HTN, denies CAD. He notes he has had echocardiogram, stress testing with last about 5 years ago. He denies any prior hx of cardiac catherization. He notes he is being treated for Multiple Myeloma with the cancer center in [place]. He is on Revlimid 10mg PO daily, he notes he takes medication for one week (current week), then takes one week off. He notes his MM is being well treated with diagnosis about 5 years ago. Principal Diagnosis Light headed due to frequent PVC Discharge Exam Constitutional WD/WN, vitals as above + overweight Eyes PERRL, conjunctivae normal, anicteric sclerae ENMT external ear and nose normal, oropharynx normal Neck trachea midline, no thyromegaly Respiratory normal respiratory effort, lungs clear to auscultation Cardiovascular RRR, no murmur, no edema Gastrointestinal (Abdomen) normal bowel sounds, soft, nontender, no hepatosplenomegaly Musculoskeletal no cyanosis or clubbing, extremities motor strength 5/5 Skin no rashes, warm and dry Neurologic patellar DTR's 2+ bilat, sensation intact and PERRL, EOMI, accommodation nl, no face palsy, no dysarthria Psychiatric A+Ox3, euthymic affect Lymphatic no cervical or axillary lymphadenopathy Discharge Data Allergies Allergy/AdvReac Type Severity Reaction Status Date / Time neomycin Allergy Unknown ? Verified 10/28/19 19:00 Consultations 10/28/19 21:23 ED Decision to Admit Stat 10/28/19 23:01 Consult Cardiology Routine Hospital Course (1) Intermittent lightheadedness: suspect that this is due to PVC, bigeminy when ambulating not getting enough perfusion to the brain less PVC on the monitor now that he has better blood pressure control on Norvasc ambulating independently, no pre-syncope symptoms at all discharge to home, follow up with PCP (2) Frequent unifocal PVCs: electrolytes are okay, Mg low normal at 1.8, will add Slo Mag hope that BP control will improve PVC, decrease frequency echo shows normal EF, some LVH, no valve disease (3) Uncontrolled hypertension: all his BP readings have been elevated cardiology started on Norvasc 5mg, showing some response continue Lisinopril 20mg BID follow up with PCP for blood pressure check in a week can increase Norvasc as needed (4) Symptomatic bradycardia: no further episodes could have been related to PVC's will watch on monitor (5) GERD (gastroesophageal reflux disease): continue PPI (6) Anxiety and depression: mood stable Zoloft (7) Multiple myeloma: stable follows with Cancer Center in [place] continue Revlimid Total Time Total Time Spent Total Time Spent (In Minutes): 32 minutes Total Time Includes: Examination of the Patient, Discharge Planning, Medication Reconciliation and Communication With Other Providers (Dr. Rivera) Discharge Plan Discharge Items Patient Disposition: Home - Self-Care Reason For Visit: DIZZINESS Discharge Diagnosis: Light headedness Frequent PVC's Hypertension Low magnesium Condition on Discharge: Good Goals: follow up with PCP for blood pressure check take Slo mag for magnesium supplementation Activity: Resume your previous activity Driving/Machine Use: No limitations Weightbearing: Full weightbearing Non-emergency contact: Primary Care Provider and [facility] Call non-emergency contact if: you have any medication questions and your symptoms worsen Follow-up/Referrals: Kunal Bains PA-C [Physician [employer]] - 11/18/19 2:00 pm (2 weeks) PCP,NO [Primary Care Provider] - Diet: Heart Healthy and Low Sodium (2gm) Addtl Attending Provider Instructions: Medications: - AMLODIPINE: 5mg daily, new medication to control blood pressure, take in addition to Lisinopril - SLO MAmg daily to help supplement magnesium, should not cause diarrhea like mag oxide often does Frequent PVC's, hypertension, light headed most likely cause of feeling light headed is frequent PVC, even bigeminy which could decrease some blood flow to brain cardiology recommends better blood pressure control to help reduce the PVC, started to work already here in the hospital echocardiogram shows preserved ejection fraction, some mile left ventricular hypertrophy from hypertension, no valve disease will discharge to home on Amlodipine to control blood pressure please follow up with your PCP next week for blood pressure check, can increase the amlodipine if needed Hypomagnesemia: will start on Slo Mag 64mg daily Pending Studies at Discharge: No Stand-Alone Forms: My [employer], Smoking Cessation Medications and DC Order Prescriptions: New amlodipine [Norvasc] 5 mg Tablet 5 mg PO QAM 30 Days Qty: 30 RF: 3 magnesium chloride [Mag 64] 64 mg Tablet,Delayed Release (Dr/Ec) 64 mg PO QAM 30 Days Qty: 30 RF: 3 Continued terazosin 5 mg capsule 5 mg PO BID RF: 0 hydrocodone-acetaminophen [Cecilia] 5-325 mg tablet 1 tab PO Q4 PRN (Reason: Moderate Pain (Scale Score 5-6)) RF: 0 lisinopril [Zestril] 20 mg tablet 20 mg PO BID RF: 0 acyclovir 400 mg tablet 400 mg PO DAILY RF: 0 aspirin [Aspir-81] 81 mg Tablet,Delayed Release (Dr/Ec) 81 mg PO DAILY RF: 0 simvastatin [Zocor] 40 mg tablet 40 mg PO DAILY RF: 0 potassium chloride [Klor-Con M20] 20 mEq tablet,ER particles/crystals 40 meq PO .QSUPPER RF: 0 potassium chloride [Klor-Con M20] 20 mEq tablet,ER particles/crystals 20 meq PO BID RF: 0 gabapentin [Neurontin] 300 mg capsule 300 mg PO TID RF: 0 Phospha 250 Neutral 250 mg tablet 1,250 tab PO DAILY RF: 0 albuterol sulfate [Ventolin HFA] 90 mcg/actuation HFA aerosol inhaler 2 puff INHALATION Q4 PRN (Reason: Shortness Of Breath Or Wheezing) RF: 0 fluticasone propionate [Flonase Allergy Relief] 50 mcg/actuation spray,suspension 2 spray INTRANASAL DAILY PRN (Reason: Nasal Congestion) RF: 0 sertraline [Zoloft] 50 mg tablet 50 mg PO DAILY RF: 0 esomeprazole magnesium [Nexium] 20 mg Capsule,Delayed Release(Dr/Ec) 20 mg PO DAILY RF: 0 Revlimid 10 mg capsule 10 mg PO UD RF: 0 multivitamin Tablet 1 tab PO DAILY RF: 0 loperamide [Imodium A-D] 2 mg Tablet 2 mg PO Q6H PRN (Reason: Diarrhea) RF: 0 calcium carbonate [Calcium 600] 600 mg calcium (1,500 mg) Tablet 600 mg PO BID RF: 0 loratadine 10 mg Tablet 10 mg PO DAILY RF: 0 coenzyme Q10 [CoQ-10] 100 mg Capsule 100 mg PO DAILY RF: 0 Discharge Orders: Discharge Order (Routine); Ordered 10/30/19 Ordered By: Fabrizio Hernandez Admission Data Admit Date/Time: 10/28/19 22:32 Attending Provider: Fabrizio Hernandez Admit Provider: Mitchell Tao Primary Care Provider: PCP,NO Other Providers: Gray Mantilla ; Romeo Gandhi. Other Interventions: Discharge Summary Assessment (RN) Last Done: 10/30/19 09:42 DC Date/Time DO NOT enter until pt leaves facility: 10/30/19 14:28 Coding Level of Care Code D/C Day Management >30 mins Diagnoses Intermittent lightheadedness R42 Frequent unifocal PVCs I49.3 Uncontrolled hypertension I10 Symptomatic bradycardia R00.1 GERD (gastroesophageal reflux disease) K21.9 Anxiety and depression F41.9; F32.9 Multiple myeloma C90.00
== END 2019-10-30 14:28 | disposition home or self-care (01) | DRG 315 ==
LOC: ED 17:29 → 2S 22:32 → SUATTDRO 22:32 → 2S 22:51